=== PATIENT | male | born 1985 | race Caucasian/White ===

== ENCOUNTER 2019-09-30 20:00 | Emergency (ER) | payer MEDICAID ==
[~2019-09-30] VITALS: Ht 180.3 cm; Wt 81.8 kg
[~2019-09-30 20:00] MED LIST: NO HOME MEDS
[2019-09-30 20:07] VITALS: BP 127/89
[2019-09-30 20:25] LABS: BASOPHILS # (AUTO) 0.1 X10'3 (0-0.2); BASOPHILS % (AUTO) 1.1 % (0-1); EOSINOPHILS # (AUTO) 0.1 X10'3 (0-0.9); EOSINOPHILS % (AUTO) 0.9 % (0-6); HEMATOCRIT 43.8 % (42.0-52.0); LYMPHOCYTES # (AUTO) 2.9 X10'3 (1.1-4.8); LYMPHOCYTES % (AUTO) 25.5 % (21-51); MEAN CORPUSCULAR HEMOGLOBIN 31.2 PG (27.0-31.0); MEAN CORPUSCULAR HGB CONC 34.3 g/dL (33.0-36.5); MONOCYTES # (AUTO) 1.2 X10'3 (0-0.9); MONOCYTES % (AUTO) 10.1 % (2-12); NEUTROPHILS # (AUTO) 7.1 X10'3 (1.8-7.7); NEUTROPHILS % (AUTO) 62.4 % (42-75); PLATELET COUNT 211 X10'3 (140-440); RED BLOOD COUNT 4.82 X10'6 (4.70-6.10); RED CELL DISTRIBUTION WIDTH 13.5 % (11.5-14.5); WHITE BLOOD COUNT 11.4 X10'3 (4.5-11.0)
[2019-09-30 20:41] LABS: ALANINE AMINOTRANSFERASE 43 U/L (12-78); ALBUMIN 4.3 G/DL (3.4-5.0); ALBUMIN/GLOBULIN RATIO 1.3 (1.1-1.5); ALKALINE PHOSPHATASE 78 IU/L (46-116); ANION GAP 10 (8-16); ASPARTATE AMINO TRANSFERASE 23 U/L (10-37); BLOOD UREA NITROGEN 12 MG/DL (7-18); BUN/CREATININE RATIO 11.2 (5.4-32.0); CALCIUM 8.9 MG/DL (8.5-10.1); CHLORIDE 106 MMOL/L (99-107); CREATININE 1.07 MG/DL (0.60-1.10); GLUCOSE 100 MG/DL (70-104); LIPASE 97 U/L (73-393); POTASSIUM 3.8 MMOL/L (3.5-5.1); SODIUM 141 MMOL/L (135-145); TOTAL CARBON DIOXIDE 25.5 MMOL/L (24-32); TOTAL PROTEIN 7.5 G/DL (6.4-8.2); eGFR 79 ML/MIN
--- NOTE | 2019-09-30 22:33 | NUR ---
PT FILI, WAS NOT SEEN BY ANY MAIN ER STAFF LEAVING. REGISTRATIONS STATES TO ME THAT SHE SAW HE LEAVE "AWHILE AGO".
== END 2019-10-01 04:34 | disposition left against medical advice (07) ==
LOC: ER 20:01
DX: R30.0 Dysuria (principal); R31.9 Hematuria, unspecified; F12.90 Cannabis use, unspecified, uncomplicated
CPT/HCPCS: 36415; 80053; 83690; 85025; 99283

== ENCOUNTER 2019-11-13 10:50 | Emergency (ER) | payer MEDICAID ==
[~2019-11-13] VITALS: Ht 177.8 cm; Wt 81.8 kg
[2019-11-13] MEDS ORDERED: LORazepam 2 mg/ml vial IM ONE (11:50)
[2019-11-13 12:00] LABS: BASOPHILS # (AUTO) 0.1 X10'3 (0-0.2); BASOPHILS % (AUTO) 1.2 % (0-1); EOSINOPHILS % (AUTO) 0.4 % (0-6); HEMATOCRIT 43.9 % (42.0-52.0); HEMOGLOBIN 15.5 g/dl (14.0-17.9); LYMPHOCYTES # (AUTO) 1.8 X10'3 (1.1-4.8); LYMPHOCYTES % (AUTO) 18.6 % (21-51); MEAN CORPUSCULAR HEMOGLOBIN 32.4 PG (27.0-31.0); MEAN CORPUSCULAR HGB CONC 35.4 g/dL (33.0-36.5); MEAN CORPUSCULAR VOLUME 91.4 FL (78-98); MEAN PLATELET VOLUME 8.2 FL (7.4-10.4); MONOCYTES # (AUTO) 0.7 X10'3 (0-0.9); MONOCYTES % (AUTO) 7.4 % (2-12); NEUTROPHILS % (AUTO) 72.4 % (42-75); PLATELET COUNT 224 X10'3 (140-440); RED CELL DISTRIBUTION WIDTH 13.2 % (11.5-14.5); WHITE BLOOD COUNT 9.6 X10'3 (4.5-11.0)
[2019-11-13 12:12] LABS: ALANINE AMINOTRANSFERASE 46 U/L (12-78); ALBUMIN 4.5 G/DL (3.4-5.0); ALBUMIN/GLOBULIN RATIO 1.4 (1.1-1.5); ALKALINE PHOSPHATASE 77 IU/L (46-116); ANION GAP 10 (8-16); ASPARTATE AMINO TRANSFERASE 23 U/L (10-37); BLOOD UREA NITROGEN 12 MG/DL (7-18); BUN/CREATININE RATIO 11.7 (5.4-32.0); CALCIUM 9.2 MG/DL (8.5-10.1); CHLORIDE 104 MMOL/L (99-107); CREATININE 1.03 MG/DL (0.60-1.10); GLUCOSE 95 MG/DL (70-104); SODIUM 138 MMOL/L (135-145); TOTAL CARBON DIOXIDE 24.3 MMOL/L (24-32); TOTAL PROTEIN 7.7 G/DL (6.4-8.2); eGFR 82 ML/MIN
[2019-11-13 14:04] LABS: CLARITY,URINE CLOUDY (Clear); COLOR,URINE YELLOW (Yellow); GLUCOSE, URINE NEGATIVE (Neg); KETONES,URINE NEGATIVE (Neg); LEUKOCYTE ESTERASE ,URINE SMALL (Neg); NITRITES, URINE NEGATIVE (Neg); OCCULT BLOOD,URINE TRACE-LYSED (Neg); PROTEIN,URINE NEGATIVE (Neg); UROBILINOGEN,URINE 0.2 E.U/dL (0.2-1.0)
[2019-11-13 14:09] LABS: UA COLLECTION TYPE URINAL
[2019-11-13 14:10] LABS: MUCUS STRANDS MODERATE /LPF (Neg); SQUAMOUS EPITHELIAL CELL,UR MODERATE /LPF (FEW)
[2019-11-13 14:11] LABS: BACTERIA,URINE 2+ /HPF (Neg)
[2019-11-13] MEDS ORDERED: LORA-269 PO (14:14)
[2019-11-13] MEDS ORDERED: CEPH250T PO (14:14)
[2019-11-13 14:28] VITALS: BP 116/74
== END 2019-11-13 14:33 | disposition home or self-care (01) ==
LOC: ER 10:51
DX: N39.0 Urinary tract infection, site not specified (principal); F41.9 Anxiety disorder, unspecified; G43.909 Migraine, unspecified, not intractable, without status migrainosus; F12.90 Cannabis use, unspecified, uncomplicated; Z79.899 Other long term (current) drug therapy
CPT/HCPCS: 36415; 72192; 80053; 81001; 85025; 87077; 87088; 96372; 99284; J2060

== ENCOUNTER 2019-11-16 08:17 | Emergency (ER) | payer MEDICAID ==
[~2019-11-16] VITALS: Ht 177.8 cm; Wt 84.0 kg
[~2019-11-16 08:17] MED LIST changes: +CEPH250T PO; +LORA-269 PO
[2019-11-16] MEDS ORDERED: acetaminophen 325mg tablet PO ONE (09:30)
[2019-11-16] MEDS ORDERED: ibuprofen tablet 400 MG TABLET PO ONE (09:30)
[2019-11-16] MEDS ORDERED: SULF1TAB49 PO (09:42)
[2019-11-16] MEDS ORDERED: sulfamethoxazole/trimethoprim DS (800/160mg) tablet PO ONE (09:45)
[2019-11-16 09:51] VITALS: BP 117/84
== END 2019-11-16 09:52 | disposition home or self-care (01) ==
LOC: ER 08:18
DX: N30.90 Cystitis, unspecified without hematuria (principal); F41.9 Anxiety disorder, unspecified; F12.90 Cannabis use, unspecified, uncomplicated; Z79.2 Long term (current) use of antibiotics; Z79.899 Other long term (current) drug therapy
CPT/HCPCS: 99284

== ENCOUNTER 2019-11-16 15:09 | Emergency (ER) | payer MEDICAID ==
[~2019-11-16] VITALS: Ht 177.8 cm; Wt 81.8 kg
[~2019-11-16 15:09] MED LIST changes: +SULF1TAB49 PO
[2019-11-16] MEDS ORDERED: LIDOcaine 2% 10ml TOPICAL JELLY (Urojet) TP ONE (16:30)
[2019-11-16] MEDS: LIDOcaine 2% 10ml TOPICAL JELLY (Urojet) MM ONE ×2 (16:32→17:08)
[2019-11-16] MEDS ORDERED: morphine 4 MG/ML inj SYRINge IV ONE ×2 (16:50→17:05)
--- NOTE | 2019-11-16 16:56 | NUR ---
attempted to put douglas in pt but not able to advance beyond prostate. used a coude as well and not successful. MD Child aware and states he is going to attempt once the pt has been given pain meds.
--- NOTE | 2019-11-16 17:12 | NUR ---
Child has attempted to put a catheter in but not successful. paging for urology.
[2019-11-16] MEDS ORDERED: HYDROmorphone 1 mg/ml syringe IV ONE (18:05)
--- NOTE | 2019-11-16 18:05 | NUR ---
dr. gonzales/urologist at bedside.ordered morphine 4mg.order noted and carried out.
[2019-11-16] MEDS ORDERED: morphine 4 MG/ML inj SYRINge IV STA (18:06)
[2019-11-16] MEDS ORDERED: morphine 4 MG/ML inj SYRINge ONE (18:08)
--- NOTE | 2019-11-16 18:11 | NUR ---
Dr. Diaz/urologist,at bedside performing urethral dilation.
[2019-11-16 18:49] LABS: CLARITY,URINE CLEAR (Clear); COLOR,URINE ORANGE (Yellow); UA COLLECTION TYPE FOLEY CATH
[2019-11-16 18:53] LABS: MUCUS STRANDS MANY /LPF (Neg); SQUAMOUS EPITHELIAL CELL,UR MODERATE /LPF (FEW)
[2019-11-16 18:55] LABS: BACTERIA,URINE NONE SEEN /HPF (Neg); WBC,URINE 0-4 /HPF (0-4)
[2019-11-16 19:17] VITALS: BP 129/91
== END 2019-11-16 19:18 | disposition home or self-care (01) ==
LOC: ER 15:09
DX: R33.9 Retention of urine, unspecified (principal); N35.819 Other urethral stricture, male, unspecified site; G43.909 Migraine, unspecified, not intractable, without status migrainosus; F41.9 Anxiety disorder, unspecified; F12.90 Cannabis use, unspecified, uncomplicated; Z79.2 Long term (current) use of antibiotics; Z79.899 Other long term (current) drug therapy
CPT/HCPCS: 51702; 81001; 96374; 96376; 99284; J2270

== ENCOUNTER 2019-11-23 11:35 | Emergency (ER) | payer MEDICAID ==
[~2019-11-23] VITALS: Ht 177.8 cm; Wt 83.0 kg
[~2019-11-23 11:35] MED LIST changes: -CEPH250T PO
[2019-11-23 12:40] LABS: CLARITY,URINE CLOUDY (Clear); COLOR,URINE BROWN (Yellow)
[2019-11-23 12:44] LABS: UA COLLECTION TYPE FOLEY CATH
[2019-11-23 12:47] LABS: AMORPHOUS URATES 1+; BACTERIA,URINE FEW /HPF (Neg); MUCUS STRANDS FEW /LPF (Neg); RBC,URINE TNTC /HPF (0-2); SQUAMOUS EPITHELIAL CELL,UR NONE SEEN /LPF (FEW)
[2019-11-23 14:09] VITALS: BP 107/72
== END 2019-11-23 14:10 | disposition home or self-care (01) ==
LOC: ER 11:35
DX: T83.098A Other mechanical complication of other urinary catheter, initial encounter (principal); R31.9 Hematuria, unspecified; F41.9 Anxiety disorder, unspecified; F12.90 Cannabis use, unspecified, uncomplicated; Z79.899 Other long term (current) drug therapy; Y84.9 Medical procedure, unspecified as the cause of abnormal reaction of the patient, or of later complication, without mention of misadventure at the time of the procedure; Y92.89 Other specified places as the place of occurrence of the external cause
CPT/HCPCS: 51700; 81001; 87088; 99283; 99284; G0390

== ENCOUNTER 2019-11-24 19:58 | Emergency (ER) | payer MEDICAID ==
[~2019-11-24] VITALS: Ht 177.8 cm; Wt 81.8 kg
[2019-11-24 20:02] VITALS: BP 123/87
== END 2019-11-24 21:30 | disposition home or self-care (01) ==
LOC: ER 19:58
DX: Z46.6 Encounter for fitting and adjustment of urinary device (principal); R33.9 Retention of urine, unspecified; F41.9 Anxiety disorder, unspecified; F12.90 Cannabis use, unspecified, uncomplicated; Z79.899 Other long term (current) drug therapy
CPT/HCPCS: 99284